=== PATIENT | female | born 1955 | race Caucasian/White ===

== ENCOUNTER 2018-12-31 12:03 | Outpatient (CLI) | payer BC ==
--- NOTE | 2018-12-31 13:55 | RAD ---
4 VIEWS LUMBAR SPINE: Date: 12/31/18 INDICATION: Lumbar radiculopathy. COMPARISON: None. FINDINGS: There is advanced facet osteoarthrosis and disc degenerative disease at L4-5 and L5-S1. There is Gra de I anterolisthesis of L4 on L5. No definite abnormal accentuation is seen with flexion, but there i s mild reduction with extension. No additional abnormal translational motion is evident. IMPRESSION: 1. Some reduction of Grade I anterolisthesis of L4 on L5 with extension. There is no accentuation wi th flexion. 2. Prominent facet osteoarthritic change and disc degenerative disease at L4-5 and L5-S1. POS: [facility]
--- NOTE | 2018-12-31 14:14 | MRI ---
MRI LUMBAR SPINE WITHOUT CONTRAST: HISTORY: Lumbar radiculopathy. COMPARISON: None. TECHNIQUE: MRI lumbar spine is performed is performed without intravenous Gadolinium administration. Multiseque ntial, multiplanar imaging is performed. FINDINGS: Overall, there is appropriate T1 marrow signal intensity in the lumbar vertebrae. Lumbar spine verte bral body height is maintained. There is no fracture. There is intrinsic T1 and T2 hyperintensity a t the L3 level compatible with small hemangioma. No significant STIR hyperintensity to suggest verte bral body edema or ligamentous injury. Symmetric signal intensity of the paraspinal muscles and the psoas muscles. Appropriate signal intensity of the visualized solid organs. Conus medullaris terminates at the inferior aspect of L1. T12-L1: Adequate disk hydration. No significant central canal stenosis or foraminal narrowing. L1-L2: Adequate disk hydration. No significant central canal stenosis. Foramen are patent. L2-L3: No significant loss of disk space height. There is some disk desiccation. Minimal ligamentu m flavum thickening and facet hypertrophy. Overall, there is no significant central canal stenosis o r neural foraminal narrowing. L3-L4: Adequate disk hydration. No significant loss of disk space height. Minimal generalized disk bulge. Minimal mild ligamentum flavum thickening. A small amount of fluid in both facet joints. N o significant central canal stenosis. Mild bilateral foraminal narrowing. L4-L5: Adequate disk hydration. No significant loss of disk space height. Generalized disk bulge, ligamentum flavum thickening, and facet hypertrophy are present. There is moderate degenerative carmichael ge of the posterior elements. There is fluid in both facet joints, left greater than right. Overall , there is mild to moderate central canal stenosis. There is narrowing of the right subarticular zon e without obscuration of the traversing right L4 nerve root. Mild right and left neural foraminal na rrowing. L5-S1: Adequate disk hydration. No significant central canal stenosis. Mild bilateral foraminal na rrowing. There is bilateral mild to moderate facet hypertrophy. IMPRESSION: Degenerative changes of the posterior elements as above. No evidence of high-grade central canal viktoriya nosis or high-grade foraminal narrowing. POS: [facility]
== END 2018-12-31 12:04 | disposition home or self-care (01) ==
LOC: BICMRI 12:03
PROVIDERS: ATTEND Neurological Surgery
DX: M47.26 Other spondylosis with radiculopathy, lumbar region (principal); M48.061 Spinal stenosis, lumbar region without neurogenic claudication; M51.16 Intervertebral disc disorders with radiculopathy, lumbar region; M51.37 Other intervertebral disc degeneration, lumbosacral region; M47.817 Spondylosis without myelopathy or radiculopathy, lumbosacral region; M43.16 Spondylolisthesis, lumbar region
CPT/HCPCS: 72120; 72148